=== PATIENT | female | born 1955 | race Two or more races ===

== ENCOUNTER 2024-04-19 12:01 | Inpatient (IN) | payer MEDICARE, OTHER ==
[~2024-04-19] VITALS: Ht 162.6 cm; Wt 61.7 kg
[2024-04-19 12:55] LABS: BASOPHILS % (AUTO) 0.7 % (0.0-2.0); EOSINOPHILS # (AUTO) 0.1 K/uL (0.0-0.7); HEMATOCRIT 40 % (33-45); HEMOGLOBIN 13.9 g/dL (11.5-14.8); LYMPHOCYTES # (AUTO) 1.8 K/uL (0.8-4.8); LYMPHOCYTES % (AUTO) 26.2 % (20.0-44.0); MEAN CORPUSCULAR HEMOGLOBIN 33 PG (26.0-33.0); MEAN CORPUSCULAR HGB CONC 35 g/dl (31.0-36.0); MEAN CORPUSCULAR VOLUME 94 fL (82-100); MONOCYTES # (AUTO) 0.5 K/uL (0.1-1.30); MONOCYTES % (AUTO) 7.1 % (2.0-12.0); NEUTROPHILS # (AUTO) 4.4 K/uL (1.8-8.9); PLATELET COUNT (AUTO) 218 K/uL (150-450); RED BLOOD CELL COUNT(AUTO) 4.26 MIL/uL (4.0-5.2); RED CELL DISTRIBUTION WIDTH 14.2 % (11.5-15.0); WHITE BLOOD COUNT (AUTO) 6.7 K/uL (4.3-11.0)
[2024-04-19 13:09] LABS: CALCIUM, SERUM 9.4 mg/dL (8.5-10.1); CARBON DIOXIDE 22 mmol/L (21-32); CHLORIDE 107 mmol/L (98-107); CREATININE 0.7 mg/dL (0.6-1.3); GLUCOSE 101 mg/dL (74-106); POTASSIUM 2.9 mmol/L (3.5-5.1); SODIUM SERUM 142 mmol/L (136-145); UREA NITROGEN, BLOOD 19 mg/dL (7-18)
[2024-04-19 13:15] LABS: ALANINE AMINOTRANSFERASE 12 U/L (12-78); ALBUMIN 4.3 g/dL (3.4-5.0); ALKALINE PHOSPHATASE 55 U/L (46-116); ASPARTATE AMINOTRANSFERASE 16 U/L (15-37); BILIRUBIN,DIRECT 0.3 mg/dL (0.0-0.2); TOTAL PROTEIN, SERUM 8.3 g/dL (6.4-8.2)
[2024-04-19 13:25] LABS: ACETAMINOPHEN <10 ug/ml (10-30); SALICYLATE 1.1 mg/dL (2.8-20.0)
[2024-04-19 13:40] LABS: ALCOHOL, BLOOD < 3 mg/dL (0-10)
[2024-04-19] MEDS ORDERED: MELA3TAB41 PO (13:45)
[2024-04-19] MEDS ORDERED: LIDO1ADH82 TP (13:45)
[2024-04-19] MEDS ORDERED: TRAZ-182 PO (13:45)
[2024-04-19] MEDS ORDERED: ACET325T53 PO (13:45)
[2024-04-19] MEDS ORDERED: LEVO25TA7 PO (13:45)
[2024-04-19] MEDS ORDERED: ACET-2030 PO ×2 (13:45)
[2024-04-19] MEDS ORDERED: LACT1CAP61 PO (13:45)
[2024-04-19] MEDS ORDERED: NA P133E RC (13:45)
[2024-04-19] MEDS ORDERED: DICL100G26 TP (13:45)
[2024-04-19] MEDS ORDERED: BISA10SU11 RC (13:45)
[2024-04-19] MEDS ORDERED: MAGN400O6 PO (13:45)
[2024-04-19] MEDS ORDERED: NITR100C6 PO (13:45)
[2024-04-19] MEDS ORDERED: TRAM50TA2 PO (13:45)
[2024-04-19 14:12] LABS: APPEARANCE,URINE SLIGHTLY CLOUDY (CLEAR); BILIRUBIN,URINE 1+ (NEGATIVE); BLOOD, URINE NEGATIVE Ery/uL (NEGATIVE); COLOR,URINE DARK YELLOW (YELLOW); KETONES,URINE 3+ mg/dL (NEGATIVE); LEUKOCYTE ESTERASE ,URINE NEGATIVE (NEGATIVE); NITRITE, URINE POSITIVE (NEGATIVE); PROTEIN,URINE 1+ mg/dl (NEGATIVE); UGLUCOSE TRACE mg/dL (NEGATIVE)
[2024-04-19] MEDS ORDERED: POTASSIUM CHLORIDE 20 MEQ TAB.PRT.SR PO ONE (14:24)
[2024-04-19] MEDS: POTASSIUM CHLORIDE 20 MEQ TAB.PRT.SR PO ONE (14:27)
[2024-04-19 14:29] LABS: AMPHETAMINE, URINE NEGATIVE (NEGATIVE); BARBITURATE, URINE NEGATIVE (NEGATIVE); BENZODIAZEPINE, URINE NEGATIVE (NEGATIVE); CANNABINOID, URINE NEGATIVE (NEGATIVE); COCCAINE, URINE NEGATIVE (NEGATIVE); OPIATE, URINE NEGATIVE (NEGATIVE); PHENCYCLIDINE SCREEN,URINE NEGATIVE (NEGATIVE)
[2024-04-19 14:39] LABS: ADD URINE CULTURE YES; BACTERIA,URINE 1+ /HPF (None Seen); MUCUS,URINE Few /LPF (None Seen)
[2024-04-19 15:27] VITALS: O2SAT 98
[2024-04-19] MEDS ORDERED: ZOLPIDEM TARTRATE 5 MG TABLET PO PRN (16:30)
[2024-04-19] MEDS ORDERED: ACETAMINOPHEN 325 MG TABLET PO PRN ×2 (16:30)
[2024-04-19] MEDS ORDERED: BISACODYL SUPP (10 MG) 10 MG/SUPP.RECT SUPP.RECT RC PRN (16:30)
[2024-04-19] MEDS ORDERED: MAG HYDROX/AL HYDROX/SIMETH 30 ML UDC PO PRN (16:30)
[2024-04-19] MEDS ORDERED: LORAZEPAM 1 MG TABLET PO PRN (16:30)
[2024-04-19] MEDS ORDERED: MAGNESIUM HYDROXIDE 30 ML UDC PO PRN (16:30)
[2024-04-19] MEDS: LEVOTHYROXINE SODIUM 25 MCG TABLET PO SCH (17:20)
[2024-04-19] MEDS: NITROFURANTOIN/MONOHYDRATE MACROCRYSTALS 100 MG CAPSULE PO SCH (17:20)
[2024-04-19] MEDS: TRAMADOL HCL 50 MG TABLET PO SCH (17:21)
[2024-04-19] MEDS: BLOOD SUGAR DIAGNOSTIC 1 EACH STRIP IN ONE (17:21)
[2024-04-19 20:00] VITALS: BP 125/83; TEMP 97.8; O2SAT 100
[2024-04-20 08:00] VITALS: BP 117/75; TEMP 97.6; O2SAT 96
[2024-04-20 08:54] LABS: CREATININE 0.6 mg/dL (0.6-1.3)
[2024-04-20 10:39] LABS: ALBUMIN 3.8 g/dL (3.4-5.0); BILIRUBIN,TOTAL 0.9 mg/dL (0.2-1.0); CREATININE 0.6 mg/dL (0.6-1.3); POTASSIUM 3.4 mmol/L (3.5-5.1); TOTAL PROTEIN, SERUM 7.4 g/dL (6.4-8.2)
[2024-04-20] MEDS: POTASSIUM CHLORIDE 20 MEQ TAB.PRT.SR PO ONE (11:09)
[2024-04-20] MEDS ORDERED: TEMAZEPAM 7.5 MG CAPSULE PO PRN (13:00)
[2024-04-20] MEDS ORDERED: LORAZEPAM 1 MG TABLET PO PRN (13:00)
[2024-04-20 16:00] VITALS: BP 114/82; TEMP 97.8; O2SAT 94
[2024-04-20 21:17] VITALS: BP 132/93; TEMP 97.8; O2SAT 94
[2024-04-20] MEDS: MIRTAZAPINE 15 MG TABLET PO SCH (21:33)
[2024-04-21 08:00] VITALS: BP 124/87; TEMP 97.8; O2SAT 93
[2024-04-21] MEDS: ESCITALOPRAM OXALATE (10 MG) 10 MG TABLET PO SCH (08:27)
[2024-04-21 16:20] VITALS: BP 139/98; TEMP 97.9; O2SAT 93
[2024-04-21 20:11] VITALS: BP 136/90; TEMP 97.9; O2SAT 96
[2024-04-22 08:00] VITALS: BP 136/97; TEMP 98.6; O2SAT 97
[2024-04-22 16:00] VITALS: BP 118/87; TEMP 97.7; O2SAT 99
[2024-04-22 20:28] VITALS: BP 103/74; TEMP 97.9; O2SAT 96
[2024-04-22] MEDS: QUETIAPINE FUMARATE 25 MG TABLET PO SCH (21:15)
[2024-04-22 22:25] LABS: CHOLESTEROL 173 mg/dL (<200); HDL CHOLESTEROL 67 mg/dL (40-60); LDL 96 mg/dL (0-99); TRIGLYCERIDES 61 mg/dL (30-150)
[2024-04-23 08:00] VITALS: BP 99/65; TEMP 98.1; O2SAT 96
[2024-04-23 16:00] VITALS: BP 100/71; TEMP 98.7; O2SAT 96
[2024-04-23 20:12] VITALS: BP 94/72; TEMP 98.7; O2SAT 92
[2024-04-24 08:00] VITALS: BP 93/70; TEMP 98.6; O2SAT 100
[2024-04-24] MEDS: ENSURE ENLIVE 237 ML LIQUID (VANILLA) PO SCH (08:23)
[2024-04-24 16:00] VITALS: BP 101/71; TEMP 98.7; O2SAT 98
[2024-04-24 20:00] VITALS: BP 115/82; TEMP 98.3; O2SAT 96
[2024-04-25 08:00] VITALS: BP 100/76; TEMP 97.7; O2SAT 96
[2024-04-25 16:01] VITALS: BP 109/91; TEMP 97.9; O2SAT 98
[2024-04-25 20:25] VITALS: BP 116/90; TEMP 97.8; O2SAT 95
[2024-04-25] MEDS: QUETIAPINE FUMARATE 100 MG TABLET PO SCH (21:22)
[2024-04-26 08:00] VITALS: BP 97/71; TEMP 98.6; O2SAT 96
== END 2024-04-26 09:45 | DRG 881 ==
LOC: ER 12:08 → GPS 14:58
PROVIDERS: ADMIT Psychiatry & Neurology Psychiatry; ATTEND Internal Medicine
DX: F32.9 Major depressive disorder, single episode, unspecified (principal); F03.93 Unspecified dementia, unspecified severity, with mood disturbance; F03.92 Unspecified dementia, unspecified severity, with psychotic disturbance; F29 Unspecified psychosis not due to a substance or known physiological condition; E03.9 Hypothyroidism, unspecified; E87.6 Hypokalemia; I10 Essential (primary) hypertension; Z20.822 Contact with and (suspected) exposure to COVID-19; Z87.440 Personal history of urinary (tract) infections; H54.40 Blindness, one eye, unspecified eye
CPT/HCPCS: 36415; 80048-TC; 80053-TC; 80061-TC; 80076-TC; 81001; 82565-TC; 82962-TC; 84443-TC; 85025-TC; 87081-TC; 87086-TC; G0480